=== PATIENT | male | born 1995 | race Caucasian/White ===

== ENCOUNTER 2018-11-10 14:31 | Emergency (ER) | payer SELFPAY ==
[2018-11-10] MEDS ORDERED: Ondansetron 4 MG/2 ML SDV IVPUSH ONE (16:14)
[2018-11-10] MEDS ORDERED: Sodium Chloride 0.9% 1,000 ML IV SCH (16:15)
--- NOTE | 2018-11-10 16:38 | EDM.PDOC ---
ED HPI GENERAL MEDICAL PROBLEM - General Chief Complaint: Abdominal Pain Stated Complaint: VOMITING AND UNABLE TO KEEP ANYTHING DOWN Time Seen by Provider: 11/10/18 16:38 Source of Information: Reports: Patient History Limitations: Reports: No Limitations - History of Present Illness INITIAL COMMENTS - FREE TEXT/NARRATIVE: Patient is a 23-year-old male who presents ED complaining of intermittent epigastric discomfort with acid reflux into his esophagus with intermittent nausea vomiting. States he will burp up acid and then starts to vomit. States he 's been nauseated with emesis since Wednesday. He has been having a difficult time with keeping liquids down. He states approximately 2 weeks ago he consumed a heavy amount of alcohol consisting of 10 shots of liquor. That Wednesday and Wednesday he proceeded to vomit multiple times throughout the course today with minimal relief with taking Pepto-Bismol. States Wednesday he was feeling quite a bit better. Wednesday he decided to smoke marijuana and then Wednesday evening started developing this epigastric discomfort with nausea vomiting again. States he's been evaluated 2 different times at the walk-in clinic for this complaint. He was diagnosed with gastritis and placed on Zofran along with Pepcid and omeprazole. States this morning he took the Zofran and omeprazole and continues to have epigastric discomfort that waxes and wanes in intensity with some mild nausea and vomiting. The pain on examination was quite a bit better than it was prior to admission. Pain is localized with no radiation. He has not had a bowel movement for a few days since he has not eaten anything. He states every time he drinks something it feels a burning sensation to his throat. Uses Pepto-Bismol on a intermittent basis. States today he has not taken the Pepto and has not had any dark tarry stools or bloody stools. There's been no documented fever, shortness of breath, chest pain , dysuria, hematuria, dizziness, or any additional complaints. He has not had any diarrhea. He has no history of H. pylori. Patient has not utilized any marijuana since last Wednesday. He denies any other drug use. Epigastric Pain Score (Numeric/FACES): 5 - Related Data Allergies Allergy/AdvReac Type Severity Reaction Status Date / Time No Known Allergies Allergy Verified 11/10/18 15:15 Home Meds: Home Meds Omeprazole 20 mg PO DAILY 11/10/18 [History] Ondansetron [Zofran ODT] 4 mg PO Q6H PRN 11/10/18 [History] Sucralfate [Carafate] 1 gm PO Q6H 11/10/18 [History] Past Medical History - Past Health History Medical/Surgical History: Denies Medical/Surgical History Social & Family History - Tobacco Use Smoking Status *Q: Never Smoker - Recreational Drug Use Recreational Drug Use: No ED ROS GENERAL - Review of Systems Review Of Systems: ROS reveals no pertinent complaints other than HPI. ED EXAM, GI/ABD - Physical Exam Exam: See Below Exam Limited By: No Limitations General Appearance: Alert, WD/WN, No Apparent Distress Ears: Hearing Grossly Normal Nose: Normal Inspection Throat/Mouth: Normal Voice, No Airway Compromise Head: Atraumatic, Normocephalic Neck: Normal Inspection, Supple, Non-Tender, Full Range of Motion Respiratory/Chest: No Respiratory Distress, Lungs Clear, Normal Breath Sounds, No Accessory Muscle Use, Chest Non-Tender Cardiovascular: Normal Peripheral Pulses, Regular Rate, Rhythm, No Murmur GI/Abdominal Exam: Normal Bowel Sounds, Soft, Non-Tender, No Organomegaly, No Distention Back Exam: Normal Inspection. No: CVA Tenderness (L), CVA Tenderness (R) Neurological: Alert, Oriented, CN II-XII Intact, Normal Cognition, No Motor/ Sensory Deficits Psychiatric: Normal Affect, Normal Mood Skin Exam: Warm, Dry, Intact, Normal Color, No Rash Course - Vital Signs Last Recorded V/S: Last Vital Signs Temp 99.6 F 11/10/18 15:11 Pulse 65 11/10/18 15:11 Resp 16 11/10/18 15:11 BP 136/100 H 11/10/18 15:11 Pulse Ox 98 11/10/18 15:11 - Orders/Labs/Meds Labs: Laboratory Tests 11/10/18 11/10/18 11/10/18 Range/Units 16:20 16:23 16:23 WBC 10.20 H (4.23-9.07) K/mm3 RBC 6.25 H (4.63-6.08) M/mm3 Hgb 17.9 H (13.7-17.5) gm/L Hct 49.4 (40.1-51.0) % MCV 79.0 (79.0-92.2) fl MCH 28.6 (25.7-32.2) pg MCHC 36.2 H (32.2-35.5) g/dl RDW Std Deviation 36.8 (35.1-43.9) fL Plt Count 265 (163-337) K/mm3 MPV 10.8 (9.4-12.3) fl Neut % (Auto) 71.8 H (34.0-67.9) % Lymph % (Auto) 17.9 L (21.8-53.1) % [facility] % (Auto) 9.4 (5.3-12.2) % Eos % (Auto) 0.3 L (0.8-7.0) Baso % (Auto) 0.4 (0.1-1.2) % Neut # (Auto) 7.32 H (1.78-5.38) K/mm3 Lymph # (Auto) 1.83 (1.32-3.57) K/mm3 [facility] # (Auto) 0.96 H (0.30-0.82) K/mm3 Eos # (Auto) 0.03 L (0.04-0.54) K/mm3 Baso # (Auto) 0.04 (0.01-0.08) K/mm3 Manual Slide Review Abnormal smear Sodium 136 (136-145) mEq/L Potassium 3.2 L (3.5-5.1) mEq/L Chloride 96 L (98-107) mEq/L Carbon Dioxide 25 (21-32) mEq/L Anion Gap 18.2 H (5-15) BUN 11 (7-18) mg/dL Creatinine 1.1 (0.7-1.3) mg/dL Est Cr Clr Drug Dosing 119.04 mL/min Estimated GFR (MDRD) > 60 (>60) mL/min BUN/Creatinine Ratio 10.0 L (14-18) Glucose 100 (74-106) mg/dL Calcium 9.9 (8.5-10.1) mg/dL Total Bilirubin 1.3 H (0.2-1.0) mg/dL AST 24 (15-37) U/L ALT 49 (16-63) U/L Alkaline Phosphatase 69 (46-116) U/L C-Reactive Protein < 0.2 (<1.0) mg/dL Total Protein 8.3 H (6.4-8.2) g/dl Albumin 4.6 (3.4-5.0) g/dl Globulin 3.7 gm/dL Albumin/Globulin Ratio 1.2 (1-2) Lipase 84 (73-393) U/L Urine Opiates Screen (EVLPPI=720) Ur Buprenorphine Scrn (CUTOFF=10) Ur Oxycodone Screen (SMX6BN=199) Urine Methadone Screen (XOU0OR=764) Ur Propoxyphene Screen (FYIZLM=184) Ur Barbiturates Screen (ETTGGS=370) Ur Tricyclics Screen (PJSSZV=218) Ur Phencyclidine Scrn (CUTOFF=25) Ur Amphetamine Screen (UBYUIM=593) U Methamphetamines Scrn (MRVBXZ=850) U Benzodiazepines Scrn (GLMINQ=450) U Cocaine Metab Screen (AYTSLS=092) U Marijuana (THC) Screen (CUTOFF=50) 11/10/18 Range/Units 17:35 WBC (4.23-9.07) K/mm3 RBC (4.63-6.08) M/mm3 Hgb (13.7-17.5) gm/L Hct (40.1-51.0) % MCV (79.0-92.2) fl MCH (25.7-32.2) pg MCHC (32.2-35.5) g/dl RDW Std Deviation (35.1-43.9) fL Plt Count (163-337) K/mm3 MPV (9.4-12.3) fl Neut % (Auto) (34.0-67.9) % Lymph % (Auto) (21.8-53.1) % [facility] [place] [facility] % (Auto) (5.3-12.2) % Eos % (Auto) (0.8-7.0) Baso % (Auto) (0.1-1.2) % Neut # (Auto) (1.78-5.38) K/mm3 Lymph # (Auto) (1.32-3.57) K/mm3 [facility] [place] [facility] # (Auto) (0.30-0.82) K/mm3 Eos # (Auto) (0.04-0.54) K/mm3 Baso # (Auto) (0.01-0.08) K/mm3 Manual Slide Review Sodium (136-145) mEq/L Potassium (3.5-5.1) mEq/L Chloride (98-107) mEq/L Carbon Dioxide (21-32) mEq/L Anion Gap (5-15) BUN (7-18) mg/dL Creatinine (0.7-1.3) mg/dL Est Cr Clr Drug Dosing mL/min Estimated GFR (MDRD) (>60) mL/min BUN/Creatinine Ratio (14-18) Glucose (74-106) mg/dL Calcium (8.5-10.1) mg/dL Total Bilirubin (0.2-1.0) mg/dL AST (15-37) U/L ALT (16-63) U/L Alkaline Phosphatase (46-116) U/L C-Reactive Protein (<1.0) mg/dL Total Protein (6.4-8.2) g/dl Albumin (3.4-5.0) g/dl Globulin gm/dL Albumin/Globulin Ratio (1-2) Lipase (73-393) U/L Urine Opiates Screen Negative (TYBBFB=682) Ur Buprenorphine Scrn Negative (CUTOFF=10) Ur Oxycodone Screen Negative (LJC5BY=962) Urine Methadone Screen Negative (UVO2GM=587) Ur Propoxyphene Screen Negative (DOUNNQ=224) Ur Barbiturates Screen Negative (FFAGCC=453) Ur Tricyclics Screen Negative (EOWZFC=332) Ur Phencyclidine Scrn Negative (CUTOFF=25) Ur Amphetamine Screen Negative (TVVEKK=847) U Methamphetamines Scrn Negative (XZGWMK=778) U Benzodiazepines Scrn Negative (MSDUZI=206) U Cocaine Metab Screen Negative (SRXAHH=046) U Marijuana (THC) Screen Presumptive positive H (CUTOFF=50) Meds: Medications Discontinued Medications Generic Name Dose Route Start Last Admin Trade Name Freq PRN Reason Stop Dose Admin Al Hydroxide/Mg Hydroxide 30 0 ml 11/10/18 17:58 11/10/18 18:10 ml/ Lidocaine HCl 15 ml PO 11/10/18 17:59 45 ml ONETIME ONE Administration Diphenhydramine HCl 50 mg 11/10/18 17:58 11/10/18 18:06 Benadryl IVPUSH 11/10/18 17:59 50 mg ONETIME ONE Administration Sodium Chloride 1,000 mls @ 999 mls/hr 11/10/18 16:15 11/10/18 16:23 Normal Saline IV 999 mls/hr ASDIRECTED TERESA Administration Metoclopramide HCl 5 mg 11/10/18 17:58 11/10/18 18:06 Reglan IVPUSH 11/10/18 17:59 5 mg ONETIME ONE Administration Ondansetron HCl 4 mg 11/10/18 16:14 11/10/18 16:24 Zofran IVPUSH 11/10/18 16:15 4 mg ONETIME ONE Administration - Re-Assessments/Exams Free Text/Narrative Re-Assessment/Exam: IV established with normal saline 1 L bolus and also Zofran 4 mg IVP. Initial labs and studies include: CBC, chem 14, lipase, urine drug tox, and CRP. 1805 Reassessment, patient states he's had some relief with taking the Zofran. His pain has significantly improved. Labs reviewed: White blood cell count 10.20, hemoglobin 17.9, platelet count normal, neutrophil percentage is 71.8, neutrophil number is 7.32. Sodium 136. Potassium slightly low at 3.2. CO2 25, AG 18.2, creatinine 1.1, glucose normal, LFTs normal, CRP normal, lipase normal. 11/10/18 18:24 Reassessment, discussed lab results with patient. He had developed some slight pain to the epigastric region with nausea. IVF's are completed. Ordered reglan 5mg IVP and benadryl 50mg IVP. 1850 Reassessment, patient resting comfortably with no nausea or pain. He is ready to be discharged home. I encouraged the patient to continue with the treatment that has been provided to him including: Omeprazole 40 mg by mouth twice a day, carafate 1 g 4 times a day, Zofran 4 mg every 6-8 hours when necessary for nausea vomiting, and also Zantac at at bedtime as needed. He'll stick with a clear liquid diet for the next 24-48 hours and then advance to a low residue diet. Patient will follow-up with his PCP this coming week for reevaluation. Return precautions were discussed with the patient. He had no further questions or concerns and agreed with plan. He'll refrain from alcohol and also any type of drug use. Departure - Departure Time of Disposition: 18:52 Disposition: Home, Self-Care 01 Condition: Good Clinical Impression: Gastritis Qualifiers: Gastritis type: unspecified gastritis Chronicity: acute Gastritis bleeding: without bleeding Qualified Code(s): K29.00 - Acute gastritis without bleeding N&V (nausea and vomiting) Qualifiers: Vomiting type: unspecified Vomiting Intractability: non-intractable Qualified Code(s): R11.2 - Nausea with vomiting, unspecified - Discharge Information Instructions: Gastritis, Adult, [id number], Nausea and Vomiting, Adult Referrals: Obdulia Galindo MD [Primary Care Provider] - Forms: ED Department Discharge, ED Return to Work/School Form Additional Instructions: Take omeprazole 40 mg twice a day for the next 2 weeks and then 40 mg every day thereafter, zofran 4mg q6hrs for n/v, sucrafate 1 gram four times a day, and zantac 150mg at bedtime as needed. Stick with a clear liquid diet for the next 24 hours. Advance to a low residue diet thereafter. Refrain from caffeinated beverages, spicy foods, alcohol beverages, marijuana use, and or eating/ drinking within 3 hours of going to bed. Make an appointment with a primary care provider of your choice to be evaluated this coming week for reevaluation. Return to the ED for any new or worsening symptoms as discussed.
[2018-11-10] MEDS ORDERED: Alum Hydrox/Mag Hydrox/Simeth 30 ML, Lidocaine 2% 15 ML PO ONE ×2 (17:58)
[2018-11-10] MEDS ORDERED: diphenhydrAMINE 50 MG/ML SDV IVPUSH ONE (17:58)
[2018-11-10] MEDS ORDERED: Metoclopramide 10 MG/2 ML SDV IVPUSH ONE (17:58)
== END 2018-11-10 19:10 | disposition home or self-care (01) ==
LOC: JD.ED 14:31
DX: K29.00 Acute gastritis without bleeding (principal); Z79.899 Other long term (current) drug therapy
CPT/HCPCS: 36415; 80053; 80306; 83690; 85025; 86140; 96361; 96374; 96375; 99284; A9270; J1200; J2405; J2765; J7040